=== PATIENT | female | born 1965 | race Hispanic/Latino ===

== ENCOUNTER 2020-05-08 14:13 | Emergency (ER) | payer BC ==
--- NOTE | 2020-05-08 14:56 | RAD REPORT ---
EXAM DESCRIPTION: CT - Ct Stroke Brain Wo Cont - 05/08/2020 2:50 pm CLINICAL HISTORY: Numbness COMPARISON: none TECHNIQUE: Computed axial tomography of the head was obtained. All CT scans are performed using dose optimization technique as appropriate and may include automated exposure control or mA/KV adjustment according to patient size. FINDINGS: An intracranial bleed is not seen . The ventricles are normal in caliber. No extra-axial fluid collection is noted. Fluid within the sinuses/ mastoids is not seen. IMPRESSION: No acute intracranial abnormality is seen. If patient's symptoms persist MRI of the bra in would be recommended. Dr Massey of emergency Room was notified at approximately 2:28 p.m. May 08, 2020
[2020-05-08 15:01] LABS: Absolute Lymphocytes (CBC) 2.7 K/uL (0.7-4.9); Hematocrit 32.5 % (36.0-45.0); Lymphocytes % 28.4 % (15.3-44.8); MPV 8.2 fL (7.6-11.3); RBC Red Blood Cell Count 3.93 M/uL (3.86-4.86)
[2020-05-08 15:03] LABS: Potassium 3.7 mmol/L (3.5-5.1)
[2020-05-08 15:05] LABS: Protime INR 0.91
[2020-05-08] MEDS ORDERED: NA CHLORIDE 0.9% 1,000 ML ONE (15:07)
[2020-05-08] MEDS ORDERED: FOLIC ACID 5 MG/ML VIAL ONE (15:07)
[2020-05-08] MEDS ORDERED: PANTOPRAZOLE 40 MG INJ ONE (15:14)
[2020-05-08] MEDS ORDERED: ALTEPLASE 100 ML IV ONE (15:15)
--- NOTE | 2020-05-08 15:17 | RAD REPORT ---
EXAM DESCRIPTION: Sandi Single View05/08/2020 3:05 pm CLINICAL HISTORY: Hypertension/coronary artery disease COMPARISON: none FINDINGS: The lungs appear clear of acute infiltrate. The heart is normal size IMPRESSION: No acute abnormalities displayed
[2020-05-08] MEDS ORDERED: NA CHLORIDE 0.9% 100 ML IV ONE (15:36)
--- NOTE | 2020-05-08 15:41 | ER ---
Nurse's Notes [facility] Name: Jasmyne Garcia Age: 54 yrs Sex: Female : 1965 Arrival Date: 05/08/2020 Time: 14:16 Bed 3 Private MD: Diagnosis: Cerebral infarction;Weakness;Bradycardia, unspecified Presentation: 05/08 14:16 Chief complaint: Patient states: left arm and leg numbness, and tongue numbness started sv about 10 mins ago. 14:16 Method Of Arrival: Wheelchair sv 14:16 Acuity: MARISOL 2 sv 14:22 Onset of symptoms was May 08, 2020. sv 14:44 Ebola Screen: Patient denies travel to an Ebola-affected area in the 21 days before tw2 illness onset. PRODUCTION OFFICER: 14:44 LMP N/A - tw2 Historical: - Allergies: 14:22 No Known Allergies; sv - Home Meds: 14:44 gabapentin 300 mg oral cap [Active]; pantoprazole 40 mg oral TbEC [Active]; aspirin 81 jl7 mg Oral chew 1 tab once daily [Active]; Metoclopramide Oral [Active]; metoprolol succinate oral oral [Active]; tramadol 50 mg Oral tab [Active]; clopidogrel 75 mg oral tab 1 tab once daily [Active]; Famotidine Oral [Active]; atorvastatin oral oral [Active]; 14:47 Tresiba FlexTouch U-100 subcutaneous subcutaneous [Active]; Fiasp [Active]; jl7 - PMHx: 14:22 Hypertension; sv 14:44 Diabetes - IDDM; CAD; jl7 - Immunization history:: Adult Immunizations unknown. - Social history:: Smoking status: Patient denies any tobacco usage or history of. - Family history:: not pertinent. Screenin:37 Abuse screen: Denies threats or abuse. Denies injuries from another. Nutritional jl7 screening: No deficits noted. Tuberculosis screening: No symptoms or risk factors identified. Fall Risk No fall in past 12 months (0 pts). Secondary diagnosis (15 points) IV access (20 points). Ambulatory Aid- None/Bed Rest/Nurse Assist (0 pts). Gait- Weak (10 pts.). Mental Status- Overestimates/Forgets Limitations (15 pts.). Total Hernandez Fall Scale indicates High Risk Score (45 or more points). Fall prevention measures have been instituted. Side Rails Up X 2 Placed Close to Nursing Station Frequent Obs/Assessments Occuring Family Present and informed to notify staff if the need to leave the bedside As available patient and family educated on Fall Prevention Program and Strategies. 14:39 Patient has been NPO before screening. The patient is alert, able to follow commands. tw2 The patient does not exhibit slurred or garbled speech The patient is not exhibiting difficulty speaking. The patient does not exhibit difficulty understanding words. The patient is able to swallow own secretions with no drooling or need for suction. Patient tolerated one teaspoon of water. No drooling, immediate coughing, gurgling, or clearing of the throat was noted. The patient tolerated 90mL of water. No drooling, immediate coughing, gurgling, or clearing of the throat was noted. The patient passed the bedside swallow screening. Oral medications may be given as ordered. Contact Physician for further diet orders. Provider notified of bedside swallow screening results: Dash Massey MD. Assessment: 14:18 Reassessment: [facility] ER ROOM 3. tw2 14:18 Reassessment: pt take to CT via w/c with JOSE Fernandez. tw2 14:39 General: Appears in no apparent distress. slender, well groomed, Behavior is calm, tw2 cooperative, appropriate for age. Pain: Denies pain. Neuro: Level of Consciousness is awake, obeys commands, Oriented to person, place, time, situation, Reports numbness in left arm. Cardiovascular: Heart tones S1 S2 Patient's skin is warm and dry. Respiratory: Airway is patent Respiratory effort is even, unlabored, Respiratory pattern is regular, symmetrical, Breath sounds are clear bilaterally. GI: No signs and/or symptoms were reported involving the gastrointestinal system. Abdomen is flat, Bowel sounds present X 4 quads. : No signs and/or symptoms were reported regarding the genitourinary system. EENT: No signs and/or symptoms were reported regarding the EENT system. Derm: No signs and/or symptoms reported regarding the dermatologic system. Skin is intact, is healthy with good turgor. Musculoskeletal: Range of motion: intact in all extremities. 14:42 Reassessment: pt states "i need to go #2 right now", bedpan provided. tw2 14:53 Reassessment: provider at bedside at this time. tw2 15:07 Reassessment: per Dr. Massey HOLD ALTEPLASE at this time until H\\T\\H is resulted from tw2 lab. 15:18 Reassessment: per Dr. Massey OK to administer ALTEPLASE at this time. tw2 15:48 Reassessment: Patient appears in no apparent distress at this time. Patient and/or tw2 family updated on plan of care and expected duration. Pain level reassessed. 16:07 Reassessment: Patient appears in no apparent distress at this time. Patient and/or tw2 family updated on plan of care and expected duration. Pain level reassessed. Vital Signs: 14:34 BP 103 / 51; Pulse 53; Resp 13; Pain 0/10; jl7 14:35 Temp 98.4(TE); jl7 15:00 Weight 50.35 kg (R); tw2 15:07 BP 96 / 47; Pulse 55; Resp 18; Pulse Ox 100% on R/A; tw2 15:44 BP 108 / 67; Pulse 54; Resp 15; Pulse Ox 100% ; Pain 0/10; jl7 16:00 BP 131 / 52; Pulse 58; Resp 16; Pulse Ox 100% on R/A; tw2 15:07 provider notified of bp at this time. tw2 NIH Stroke Scale Scores: 15:30 NIHSS Score: 3 tw2 15:45 NIHSS Score: 3 tw2 16:10 NIHSS Score: 4 [facility] ED Course: 14:16 Patient arrived in ED. sv 14:17 Triage completed. sv 14:18 Marcelle Leach, RN is Primary Nurse. tw2 14:22 Arm band placed on. sv 14:25 Dash Massey MD is Attending Physician. [facility] 14:34 Patient has correct armband on for positive identification. Placed in gown. Bed in low jl7 position. Call light in reach. Side rails up X 1. threat monitoring analyst on. Pulse ox on. NIBP on. 14:34 Inserted saline lock: 20 gauge in left forearm, using aseptic technique. Blood jl7 collected. Patient maintains SpO2 saturation greater than 95% on room air. 14:44 Initial lab(s) drawn, by me, sent to lab. jl7 14:50 CT Stroke Brain w/o Contrast In Process Unspecified. EDMS 15:05 Stroke CXR 1 View In Process Unspecified. EDMS 15:30 Inserted saline lock: 20 gauge in right antecubital area, using aseptic technique. tw2 ,using aseptic technique. per Jaki Batista. 15:[address] Massey with Jeanie Huffman Rn from the [facility] Transfer Center. 15:[address] West the neurologist distribution supervisor for [facility] with Dr. Massey for patient transfer consultation. 15:[address] Gonzalez the emergency room doctor distribution supervisor for [facility] with Dr. juan Massey for patient transfer consultation. 15:46 administrative approval given by Jeanie Huffman RN patient has been accepted to [facility] ER/ Dr. Gonzalez has accepted the patient in transfer/ report to be called to [phone]. 15:50 [facility] here dropping off a patient and will apple picking supervisor this patient to transport to [facility]. 16:05 Report given to JOSE Garcia with [facility]. tw2 16:06 No provider procedures requiring assistance completed. tw2 16:08 Patient transferred, IV remains in place. tw2 Administered Medications: 14:58 Drug: foLIC Acid 1 mg Route: IVPB; Site: left antecubital; tw2 15:00 Follow up: Response: No adverse reaction; IV Status: Completed infusion jl7 14:59 Drug: NS 0.9% 1000 ml Route: IV; Rate: 1 bolus; Site: left antecubital; tw2 15:10 Drug: ProTONIX 40 mg Route: IVP; Site: left hand; tw2 15:15 Follow up: Response: No adverse reaction jl7 15:30 Drug: ACTIvase {Co-Signature: tw2 (Marcelle Leach RN).} Route: IV Thrombolytics; Rate: jl7 calculated rate; Infused Over: 60 mins; 16:00 Follow up: Response: No adverse reaction; No change in condition tw2 Outcome: 15:40 ER care complete, transfer ordered by MD. merritt 16:07 Transferred by ground EMS to [facility]. tw2 16:07 Condition: stable 16:07 Instructed on the need for transfer. 16:10 Patient left the ED. ss NIH Stroke Scale - NIH Stroke Score Date: 05/08/2020 Time: 15:30 Total Score = 3 1a. Level of Consciousness (LOC) - 0(Alert) 1b. Level of Consciousness (LOC) (Year \\T\\ Age) - 0(Both) 1c. LOC Commands (Open \\T\\ Closes Eyes/Speech And Hearing Clinic Director) - 0(Both) 2. Best Gaze (Lateral Gaze Paresis) - 0(Normal) 3. Visual Field Loss - 0(No visual loss) 4. Facial Palsy - 0(Normal) 5a. Left Arm: Motor (10-second hold) - 1(Drift) 5b. Right Arm: Motor (10-second hold) - 0(No drift) 6a. Left Leg: Motor (5-second hold - always test supine) - 1(Drift) 6b. Right Leg: Motor (5-second hold - always test supine) - 0(No drift) 7. Limb Ataxia (finger/nose \\T\\ heel/ojeda - test with eyes open) - 0(Absent) 8. Sensory Loss (pinprick arms/legs/face) - 1(Mild to moderate loss) 9. Best Language: Aphasia (description/naming/reading) - 0(No aphasia) 10. Dysarthria (speech clarity - read or repeat words) - 0(Normal) 11. Extinction and Inattention (visual/tactile/auditory/spatial/personal) - 0(No abnormality) Initials: tw2 NIH Stroke Scale - NIH Stroke Score Date: 05/08/2020 Time: 15:45 Total Score = 3 1a. Level of Consciousness (LOC) - 0(Alert) 1b. Level of Consciousness (LOC) (Year \\T\\ Age) - 0(Both) 1c. LOC Commands (Open \\T\\ Closes Eyes/Speech And Hearing Clinic Director) - 0(Both) 2. Best Gaze (Lateral Gaze Paresis) - 0(Normal) 3. Visual Field Loss - 0(No visual loss) 4. Facial Palsy - 0(Normal) 5a. Left Arm: Motor (10-second hold) - 1(Drift) 5b. Right Arm: Motor (10-second hold) - 0(No drift) 6a. Left Leg: Motor (5-second hold - always test supine) - 1(Drift) 6b. Right Leg: Motor (5-second hold - always test supine) - 0(No drift) 7. Limb Ataxia (finger/nose \\T\\ heel/ojeda - test with eyes open) - 0(Absent) 8. Sensory Loss (pinprick arms/legs/face) - 1(Mild to moderate loss) 9. Best Language: Aphasia (description/naming/reading) - 0(No aphasia) 10. Dysarthria (speech clarity - read or repeat words) - 0(Normal) 11. Extinction and Inattention (visual/tactile/auditory/spatial/personal) - 0(No abnormality) Initials: tw2 NIH Stroke Scale - NIH Stroke Score Date: 05/08/2020 Time: 16:10 Total Score = 4 1a. Level of Consciousness (LOC) - 1(Not Alert) 1b. Level of Consciousness (LOC) (Year \\T\\ Age) - 0(Both) 1c. LOC Commands (Open \\T\\ Closes Eyes/Speech And Hearing Clinic Director) - 0(Both) 2. Best Gaze (Lateral Gaze Paresis) - 0(Normal) 3. Visual Field Loss - 0(No visual loss) 4. Facial Palsy - 0(Normal) 5a. Left Arm: Motor (10-second hold) - 0(No drift) 5b. Right Arm: Motor (10-second hold) - 0(No drift) 6a. Left Leg: Motor (5-second hold - always test supine) - 0(No drift) 6b. Right Leg: Motor (5-second hold - always test supine) - 0(No drift) 7. Limb Ataxia (finger/nose \\T\\ heel/ojeda - test with eyes open) - 0(Absent) 8. Sensory Loss (pinprick arms/legs/face) - 1(Mild to moderate loss) 9. Best Language: Aphasia (description/naming/reading) - 1(Mild to moderate aphasia) 10. Dysarthria (speech clarity - read or repeat words) - 1(Mild to Moderate) 11. Extinction and Inattention (visual/tactile/auditory/spatial/personal) - 0(No abnormality) Initials: shaina Signatures: Dispatcher [employer] Rebecca Cabrera RN RN sv Anderson, Corey, MD MD cha Smirch, Shelby, RN RN ss Marcelle Leach RN RN tw2 Pearl Ellison RN RN jl7 Dayana Smalls RN tw2 Corrections: (The following items were deleted from the chart) 14:44 14:22 PMHx: Diabetes - NIDDM; sv jl7 14:47 14:18 Reassessment: [facility] ER ROOM 3 ss tw2
--- NOTE | 2020-05-08 15:41 | EDPHYS ---
Physician Documentation [facility] Name: Jasmyne Garcia Age: 54 yrs Sex: Female : 1965 Arrival Date: 05/08/2020 Time: 14:16 Bed 3 Private MD: ED Physician Dash Massey HPI: 05/08 15:29 This 54 yrs old Female presents to ER via Wheelchair with complaints of shaina Numbness. 15:29 This 54 yrs old Female presents to ER via Wheelchair with complaints of shaina Numbness. 15:29 The patient's problem is reported as paresthesias, weakness, in the left upper shaina extremity, in the left lower extremity. Onset: The symptoms/episode began/occurred just prior to arrival, .25 hour(s) ago. Duration: This was a single incident. 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 The symptoms are alleviated by nothing. The symptoms are aggravated by nothing. Associated signs and symptoms: The patient has no apparent associated signs or symptoms. Severity of symptoms: At their worst the symptoms were mild moderate in the emergency department the symptoms are unchanged. Patient's baseline: Neuro: alert and fully oriented. The patient has not experienced similar symptoms in the past. 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 N/A - tw2 Historical: - Allergies: 14:22 No Known Allergies; sv - Home Meds: 14:44 gabapentin 300 mg oral cap [Active]; pantoprazole 40 mg oral TbEC [Active]; aspirin 81 jl7 mg Oral chew 1 tab once daily [Active]; Metoclopramide Oral [Active]; metoprolol succinate oral oral [Active]; tramadol 50 mg Oral tab [Active]; clopidogrel 75 mg oral tab 1 tab once daily [Active]; Famotidine Oral [Active]; atorvastatin oral oral [Active]; 14:47 Tresiba FlexTouch U-100 subcutaneous subcutaneous [Active]; Fiasp [Active]; jl7 - PMHx: 14:22 Hypertension; sv 14:44 Diabetes - IDDM; CAD; jl7 - Immunization history:: Adult Immunizations unknown. - Social history:: Smoking status: Patient denies any tobacco usage or history of. - Family history:: not pertinent. ROS: 15:29 Constitutional: Negative for fever, chills, and weight loss, Eyes: Negative for injury, hsaina pain, redness, and discharge, ENT: Negative for injury, pain, and discharge, Neck: Negative for injury, pain, and swelling, Cardiovascular: Negative for chest pain, palpitations, and edema, Respiratory: Negative for shortness of breath, cough, wheezing, and pleuritic chest pain, Abdomen/GI: Negative for abdominal pain, nausea, vomiting, diarrhea, and constipation, Back: Negative for injury and pain, : Negative for injury, bleeding, discharge, and swelling, MS/Extremity: Negative for injury and deformity, Skin: Negative for injury, rash, and discoloration, Psych: Negative for depression, anxiety, suicide ideation, homicidal ideation, and hallucinations, Allergy/Immunology: Negative for hives, rash, and allergies, Endocrine: Negative for neck swelling, polydipsia, polyuria, polyphagia, and marked weight changes. 15:29 Neuro: Positive for speech changes, tingling, weakness, of the left arm and left leg. Exam: 15:29 Radiologist reports: jorge [facility] 15:29 Constitutional: This is a well developed, well nourished patient who is awake, alert, and in no acute distress. Head/Face: Normocephalic, atraumatic. Eyes: Pupils equal round and reactive to light, extra-ocular motions intact. Lids and lashes normal. Conjunctiva and sclera are non-icteric and not injected. Cornea within normal limits. Periorbital areas with no swelling, redness, or edema. ENT: Nares patent. No nasal discharge, no septal abnormalities noted. Tympanic membranes are normal and external auditory canals are clear. Oropharynx with no redness, swelling, or masses, exudates, or evidence of obstruction, uvula midline. Mucous membranes moist. Neck: Trachea midline, no thyromegaly or masses palpated, and no cervical lymphadenopathy. Supple, full range of motion without nuchal rigidity, or vertebral point tenderness. No Meningismus. Chest/axilla: Normal chest wall appearance and motion. Nontender with no deformity. No lesions are appreciated. Cardiovascular: Regular rate and rhythm with a normal S1 and S2. No gallops, murmurs, or rubs. Normal PMI, no JVD. No pulse deficits. Respiratory: Lungs have equal breath sounds bilaterally, clear to auscultation and percussion. No rales, rhonchi or wheezes noted. No increased work of breathing, no retractions or nasal flaring. Abdomen/GI: Soft, non-tender, with normal bowel sounds. No distension or tympany. No guarding or rebound. No evidence of tenderness throughout. Back: No spinal tenderness. No costovertebral tenderness. Full range of motion. Skin: Warm, dry with normal turgor. Normal color with no rashes, no lesions, and no evidence of cellulitis. MS/ Extremity: Pulses equal, no cyanosis. Neurovascular intact. Full, normal range of motion. Psych: Awake, alert, with orientation to person, place and time. Behavior, mood, and affect are within normal limits. 15:29 Neuro: Orientation: is normal, appropriate for stated age, no acute changes, Mentation: slow to respond, Memory: is normal, appropriate for stated age, no acute changes, Cranial nerves: grossly normal, is grossly normal based on the patient's age, no acute changes, Cerebellar function: is grossly normal, is grossly normal based on the patient's age, no acute changes, Motor: strength is 5/5 in the right arm and right leg, strength is 4/5 in the left arm and left leg, Sensation: numbness, that is mild, of the left arm and left leg, Gait: not tested. Deep tendon reflexes are 2+ (normal) in the bilateral brachioradialis, bicep, tricep and patellar and Achilles tendons, seizure activity, is not displayed by the patient. 15:36 ECG was reviewed by the Attending Physician. [facility] 15:45 Abdomen/GI: Inspection: abdomen appears normal, distension, that is mild, Bowel sounds: shaina normal, in all quadrants, active, all quadrants, Palpation: abdomen is soft and non-tender, Rectal exam: rectal tone normal, Stool: guaiac negative, hemorrhoid(s), are not appreciated, mass, is not appreciated, swelling, is not appreciated, tenderness, is not appreciated, Liver: no appreciated palpable abnormalities, Hernia: not appreciated. 15:47 ECG was reviewed by the Attending Physician. [facility] Vital Signs: 14:34 BP 103 / 51; Pulse 53; Resp 13; Pain 0/10; jl7 14:35 Temp 98.4(TE); jl7 15:00 Weight 50.35 kg (R); tw2 15:07 BP 96 / 47; Pulse 55; Resp 18; Pulse Ox 100% on R/A; tw2 15:44 BP 108 / 67; Pulse 54; Resp 15; Pulse Ox 100% ; Pain 0/10; jl7 16:00 BP 131 / 52; Pulse 58; Resp 16; Pulse Ox 100% on R/A; tw2 15:07 provider notified of bp at this time. tw2 NIH Stroke Scale Scores: 15:30 NIHSS Score: 3 tw2 15:45 NIHSS Score: 3 tw2 16:10 NIHSS Score: 4 shaina MDM: 14:25 Patient medically screened. [facility] 15:37 Data reviewed: vital signs, nurses notes, lab test result(s), EKG, radiologic studies, [facility] CT scan, plain films. 15:40 Differential diagnosis: CVA, TIA, metabolic disorder, drug effects. Data interpreted: [facility] door manager: rate is 55 beats/min, rhythm is normal sinus rhythm, regular, Pulse oximetry: on room air is 100 %. Test interpretation: by ED physician or midlevel provider: ECG, plain radiologic studies. Counseling: I had a detailed discussion with the patient and/or guardian regarding: the historical points, exam findings, and any diagnostic results supporting the discharge/admit diagnosis, lab results, radiology results, the need to transfer to another facility, for higher level of care, [facility] does not immediately have the required specialist. ED course: [place] renee, adriana moseley and martin. 05/08 14:50 Order name: Basic Metabolic Panel; Complete Time: 15:38 EDDC 05/08 14:50 Order name: CBC with Automated Diff; Complete Time: 15:38 EDDC 05/08 14:21 Order name: CT Stroke Brain w/o Contrast; Complete Time: 15:38 sv 05/08 14:33 Order name: Stroke CXR 1 View; Complete Time: 15:38 [facility] 05/08 14:50 Order name: Protime (+INR); Complete Time: 15:38 EDDC 05/08 14:50 Order name: PTT, Activated Partial Thromb; Complete Time: 15:38 EDDC 05/08 15:04 Order name: Glucose, Ancillary Testing; Complete Time: 15:38 EDDC 05/08 14:33 Order name: EKG; Complete Time: 14:47 [facility] 05/08 14:33 Order name: Accucheck; Complete Time: 14:42 7 05/08 14:33 Order name: Cardiac monitoring; Complete Time: 14:38 jl7 05/08 14:33 Order name: EKG - Nurse/Tech; Complete Time: 15:44 jl7 05/08 14:33 Order name: IV Saline Lock; Complete Time: 14:38 7 05/08 14:33 Order name: Labs collected and sent; Complete Time: 14:38 [facility] 05/08 14:33 Order name: NPO; Complete Time: 14:38 05/08 14:33 Order name: O2 Per Protocol; Complete Time: 14:42 7 05/08 14:33 Order name: O2 Sat Monitoring; Complete Time: 14:42 [facility] 05/08 14:33 Order name: Stroke Swallow Screen; Complete Time: 14:53 7 05/08 14:38 Order name: Stroke Swallow Screen; Complete Time: 14:39 2 05/08 15:42 Order name: EKG; Complete Time: 15:43 shaina 05/08 15:42 Order name: EKG - Nurse/Tech; Complete Time: 15:43 shaina EC:36 Rate is 53 beats/min. Rhythm is regular. QRS [place] is Normal. OK interval is normal. QRS shaina interval is normal. QT interval is normal. No Q waves. T waves are Normal. No ST changes noted. Clinical impression: Sinus bradycardia. Interpreted by me. Reviewed by me. 15:47 Rate is 54 beats/min. Rhythm is regular. QRS [place] is Normal. [place] interval is normal. QRS shaina interval is normal. QT interval is normal. No Q waves. T waves are Normal. No ST changes noted. Clinical impression: Sinus bradycardia. Interpreted by me. Reviewed by me. Administered Medications: 14:58 Drug: foLIC Acid 1 mg Route: IVPB; Site: left antecubital; tw2 15:00 Follow up: Response: No adverse reaction; IV Status: Completed infusion 14:59 Drug: NS 0.9% 1000 ml Route: IV; Rate: 1 bolus; Site: left antecubital; tw2 15:10 Drug: ProTONIX 40 mg Route: IVP; Site: left hand; tw2 15:15 Follow up: Response: No adverse reaction [facility] 15:30 Drug: ACTIvase {Co-Signature: tw2 (Marcelle Leach RN).} Route: IV Thrombolytics; Rate: jl7 calculated rate; Infused Over: 60 mins; 16:00 Follow up: Response: No adverse reaction; No change in condition tw2 Disposition: 05/08/20 15:40 Transfer ordered to [facility]. Diagnosis are Cerebral infarction, Weakness, Bradycardia, unspecified. - Reason for transfer: Higher level of care. - Accepting physician is dr renee, neuro icu. - Condition is Fair. - Problem is new. - Symptoms have improved. Critical care time excluding procedures: 15:46 Critical care time: Bedside Care: 20 minutes, Consultation: 10 minutes. Total time: 30 shaina minutes NIH Stroke Scale - NIH Stroke Score Date: 05/08/2020 Time: 15:30 Total Score = 3 1a. Level of Consciousness (LOC) - 0(Alert) 1b. Level of Consciousness (LOC) (Year \T\ Age) - 0(Both) 1c. LOC Commands (Open \T\ Closes Eyes/Biometrics Experimentalist) - 0(Both) 2. Best Gaze (Lateral Gaze Paresis) - 0(Normal) 3. Visual Field Loss - 0(No visual loss) 4. Facial Palsy - 0(Normal) 5a. Left Arm: Motor (10-second hold) - 1(Drift) 5b. Right Arm: Motor (10-second hold) - 0(No drift) 6a. Left Leg: Motor (5-second hold - always test supine) - 1(Drift) 6b. Right Leg: Motor (5-second hold - always test supine) - 0(No drift) 7. Limb Ataxia (finger/nose \T\ heel/ojeda - test with eyes open) - 0(Absent) 8. Sensory Loss (pinprick arms/legs/face) - 1(Mild to moderate loss) 9. Best Language: Aphasia (description/naming/reading) - 0(No aphasia) 10. Dysarthria (speech clarity - read or repeat words) - 0(Normal) 11. Extinction and Inattention (visual/tactile/auditory/spatial/personal) - 0(No abnormality) Initials: tw2 NIH Stroke Scale - NIH Stroke Score Date: 05/08/2020 Time: 15:45 Total Score = 3 1a. Level of Consciousness (LOC) - 0(Alert) 1b. Level of Consciousness (LOC) (Year \T\ Age) - 0(Both) 1c. LOC Commands (Open \T\ Closes Eyes/Biometrics Experimentalist) - 0(Both) 2. Best Gaze (Lateral Gaze Paresis) - 0(Normal) 3. Visual Field Loss - 0(No visual loss) 4. Facial Palsy - 0(Normal) 5a. Left Arm: Motor (10-second hold) - 1(Drift) 5b. Right Arm: Motor (10-second hold) - 0(No drift) 6a. Left Leg: Motor (5-second hold - always test supine) - 1(Drift) 6b. Right Leg: Motor (5-second hold - always test supine) - 0(No drift) 7. Limb Ataxia (finger/nose \T\ heel/ojeda - test with eyes open) - 0(Absent) 8. Sensory Loss (pinprick arms/legs/face) - 1(Mild to moderate loss) 9. Best Language: Aphasia (description/naming/reading) - 0(No aphasia) 10. Dysarthria (speech clarity - read or repeat words) - 0(Normal) 11. Extinction and Inattention (visual/tactile/auditory/spatial/personal) - 0(No abnormality) Initials: tw2 NIH Stroke Scale - NIH Stroke Score Date: 05/08/2020 Time: 16:10 Total Score = 4 1a. Level of Consciousness (LOC) - 1(Not Alert) 1b. Level of Consciousness (LOC) (Year \T\ Age) - 0(Both) 1c. LOC Commands (Open \T\ Closes Eyes/Biometrics Experimentalist) - 0(Both) 2. Best Gaze (Lateral Gaze Paresis) - 0(Normal) 3. Visual Field Loss - 0(No visual loss) 4. Facial Palsy - 0(Normal) 5a. Left Arm: Motor (10-second hold) - 0(No drift) 5b. Right Arm: Motor (10-second hold) - 0(No drift) 6a. Left Leg: Motor (5-second hold - always test supine) - 0(No drift) 6b. Right Leg: Motor (5-second hold - always test supine) - 0(No drift) 7. Limb Ataxia (finger/nose \T\ heel/ojeda - test with eyes open) - 0(Absent) 8. Sensory Loss (pinprick arms/legs/face) - 1(Mild to moderate loss) 9. Best Language: Aphasia (description/naming/reading) - 1(Mild to moderate aphasia) 10. Dysarthria (speech clarity - read or repeat words) - 1(Mild to Moderate) 11. Extinction and Inattention (visual/tactile/auditory/spatial/personal) - 0(No abnormality) Initials: shaina Signatures: Dispatcher [employer] EDMS Rebecca Saleem, RN Dash Eubanks MD MD cha Smirch, Shelby, JOSE RN Marcelle Leach RN RN tw2 Pearl Ellison RN RN jl7 Marcelle Leach RN tw2 Corrections: (The following items were deleted from the chart) 14:44 14:22 PMHx: Diabetes - NIDDM; jl7 15:49 14:47 CBC+H.LAB.BRZ ordered. EDMS EDMS 15:50 14:47 PROTIME (+INR)+COAG.LAB.BRZ ordered. EDMS EDMS 15:50 14:47 PTT, ACTIVATED+COAG.LAB.BRZ ordered. EDMS EDMS 15:51 14:47 BASIC METABOLIC PANEL+C.LAB.BRZ ordered. EDMS EDMS 16:10 15:40 05/08/2020 15:40 Transfer ordered to [facility]. Diagnosis is Cerebral infarction; Weakness; Bradycardia, unspecified. Reason for transfer: Higher level of care. Accepting physician is dr renee, neuro icu. Condition is Fair. Problem is new. Symptoms have improved. shaina
[2020-05-09 22:39] VITALS: TEMP 98.4
[2020-05-09 22:41] VITALS: O2SAT 100
[2020-05-09 22:43] VITALS: BP 131/52
--- NOTE | 2020-05-10 06:55 | EKG ---
Test Date: 2020-05-08 Test Time: 14:59:19 Gameplay Engineer: TEQUILA MEASUREMENT RESULTS: Intervals: Rate: 53 MT: 152 QRSD: 80 QT: 462 QTc: 433 [place]: P: 58 MT: 152 QRS: 29 T: 107 INTERPRETIVE STATEMENTS: Sinus bradycardia ST & T wave abnormality, consider lateral ischemia Abnormal ECG No previous ECG available for comparison Electronically Signed On 05-10-20 06:53:37 CDT by Tim Mondragon
--- NOTE | 2020-05-10 06:55 | EKG ---
Test Date: 2020-05-08 Test Time: 15:40:34 Medical Collector: TEQUILA MEASUREMENT RESULTS: Intervals: Rate: 54 AK: 162 QRSD: 80 QT: 466 QTc: 441 [place]: P: 62 AK: 162 QRS: 43 T: 110 INTERPRETIVE STATEMENTS: Sinus bradycardia T wave abnormality, consider lateral ischemia Abnormal ECG Compared to ECG 05/08/2020 14:59:19 T-wave abnormality now present ST (T wave) deviation no longer present Possible ischemia still present Electronically Signed On 05-10-20 06:53:30 CDT by Tim Mondragon
== END 2020-05-08 16:10 | disposition short-term general hospital (02) ==
LOC: ER 14:13
DX: I63.9 Cerebral infarction, unspecified (principal); R00.1 Bradycardia, unspecified; I10 Essential (primary) hypertension; R29.703 NIHSS score 3; E11.9 Type 2 diabetes mellitus without complications; Z79.4 Long term (current) use of insulin; Z79.82 Long term (current) use of aspirin
CPT/HCPCS: 92977; 93005 ×2; 85025; 80048; 36415; 85610; 82947; 85730; 70450; 71045; 99285; 96374; J2997; C9113; J7030